=== PATIENT | male | born 1975 | race African-American/Black ===

== ENCOUNTER 2017-02-27 18:26 | Emergency (ER) | payer SELFPAY ==
[~2017-02-27] VITALS: Ht 180.3 cm; Wt 75.0 kg
[~2017-02-27 18:26] MED LIST: LORT7.5T3 PO; TRIA.1%T EX
[2017-02-27 18:27] VITALS: BP 138/83; PULSE 83; RESP 16; TEMP 99; O2SAT 99
[2017-02-27 19:47] LABS: AUTOMATED NEUTROPHIL # 4.5 TH/MM3 (1.8-7.7); BASOPHIL # 0.1 TH/MM3 (0-0.2); BASOPHIL % 0.7 % (0.0-2.0); EOSINOPHIL # 0.1 TH/MM3 (0-0.4); EOSINOPHIL % 1.3 % (0.0-4.0); HEMATOCRIT 45.6 % (39.0-51.0); HEMOGLOBIN 15.5 GM/DL (13.0-17.0); LYMPHOCYTE # 2.6 TH/MM3 (1.0-4.8); MEAN CELL VOLUME 96.1 FL (80.0-100.0); MEAN CORPUSCULAR HEMOGLOBIN 32.7 PG (27.0-34.0); MEAN CORPUSCULAR HGB CONC 34.1 % (32.0-36.0); MEAN PLATELET VOLUME 6.1 FL (7.0-11.0); MONOCYTE # 0.9 TH/MM3 (0-0.9); PLATELET COUNT 318 TH/MM3 (150-450); RED BLOOD COUNT 4.74 MIL/MM3 (4.50-5.90); RED CELL DISTRIBUTION WIDTH 14.5 % (11.6-17.2); WHITE BLOOD COUNT 8.3 TH/MM3 (4.0-11.0)
[2017-02-27 20:07] LABS: ALBUMIN 3.7 GM/DL (3.4-5.0); AST (GOT) 20 U/L (15-37); BICARBONATE 28.6 MEQ/L (21.0-32.0); BLOOD UREA NITROGEN 11 MG/DL (7-18); CALCIUM 9.7 MG/DL (8.5-10.1); CHLORIDE 102 MEQ/L (98-107); CREATININE 1.19 MG/DL (0.60-1.30); GLOMERULAR FILTRATION RATE 81 ML/MIN (>89); GLUCOSE,RANDOM 91 MG/DL (74-106); LIPASE 187 U/L (73-393); SODIUM (NA) 137 MEQ/L (136-145)
[2017-02-27 20:08] LABS: ALT (GPT) 18 U/L (12-78)
[2017-02-27 20:10] LABS: ALKALINE PHOSPHATASE 103 U/L (45-117); TOTAL BILIRUBIN ADULT 0.4 MG/DL (0.2-1.0); TOTAL PROTEIN 8.7 GM/DL (6.4-8.2)
[2017-02-27 20:23] LABS: BACTERIA, URINE RARE /hpf; BILIRUBIN, URINE NEG (NEG); BLOOD, URINE TRACE (NEG); GLUCOSE,URINE NEG (NEG); KETONE, URINE NEG (NEG); MUCUS URINE FEW /lpf (OCC); NITRITE,URINE NEG (NEG); PH, URINE 5.5 (5.0-8.5); SQUAMOUS EPITHELIAL CELL URINE 1 /hpf (0-5); URINE COLOR YELLOW (YELLW/STRAW); URINE LEUKOCYTE ESTERASE MOD (NEG)
[2017-02-27] MEDS ORDERED: SODIUM CHLORIDE 0.9% FLUSH 10 ML FLUSH IV FLUSH PRN (22:00)
[2017-02-27] MEDS ORDERED: AZITHROMYCIN PWD FOR SUSP 1 GM PACKET PO ONE (22:00)
[2017-02-27] MEDS ORDERED: cefTRIAXone 250 MG VIAL IM ONE (22:00)
[2017-02-27] MEDS ORDERED: LIDOCAINE HCL 1% 50 ML VIAL XX ONE (22:00)
--- NOTE | 2017-02-27 22:01 | PD ---
HPI Chief Complaint: Abdominal Pain Time Seen by Provider: 21:52 Travel History International Travel<30 days: No Contact w/Intl Traveler<30days: No Traveled to known affect area: No History of Present Illness HPI 41-year-old male here for evaluation of cough, lower abdominal pain, possible STD. Symptoms have been going on for about a week. Cough is productive of yellowish sputum. He states that when he coughs and when he has a bowel movement he experiences lower abdominal discomfort described as a charley horse. Denies trauma. No history of abdominal surgeries. No vomiting. No melena or hematochezia. No fevers or chills. PFSH Past Medical History Cancer: No Cardiovascular Problems: No Endocrine: No Genitourinary: No Immune Disorder: No Musculoskeletal: No Neurologic: No Psychiatric: No Reproductive: No Respiratory: No Sickle Cell Disease: No Social History Alcohol Use: Yes Tobacco Use: Yes Substance Use: Yes ([facility]) Allergies-Medications (Allergen,Severity, Reaction): Coded Allergies: No Known Allergies (Unverified Allergy, Unknown, 02/27/17) Reported Meds & Prescriptions Reported Meds & Active Scripts Active Review of Systems Except as stated in HPI: all other systems reviewed are Neg Physical Exam Narrative GENERAL: Well-developed, well-nourished, comfortable, no apparent distress. SKIN: Focused skin assessment warm/dry. No rash. HEAD: Atraumatic. Normocephalic. EYES: Pupils equal and round. No scleral icterus. No injection or drainage. ENT: Mucous membranes pink and moist. NECK: Trachea midline. No JVD. CARDIOVASCULAR: Regular rate and rhythm. RESPIRATORY: No accessory muscle use. Clear to auscultation. Breath sounds equal bilaterally. GASTROINTESTINAL: Abdomen soft, non-tender, nondistended. Normal bowel sounds. No hernias : Normal exam. No hernias. MUSCULOSKELETAL: No obvious deformities. No clubbing. No cyanosis. No edema. NEUROLOGICAL: Awake and alert. No obvious cranial nerve deficits. Motor grossly within normal limits. Normal speech. PSYCHIATRIC: Appropriate mood and affect; insight and judgment normal. Data Data Last Documented VS Vital Signs Date Time Temp Pulse Resp B/P (MAP) Pulse Ox O2 Delivery O2 Flow Rate FiO2 02/27/17 18:27 99.0 83 16 138/83 (101) 99 Room Air Orders Orders Complete Blood Count With Diff (02/27/17 18:38) Comprehensive Metabolic Panel (02/27/17 18:38) Urinalysis - C+S If Indicated (02/27/17 18:38) Gc And Chlamydia Pcr (02/27/17 18:38) Lipase (02/27/17 18:38) Urine Culture (02/27/17 19:25) Ct Abd/Pel W Iv Contrast(Rout) (02/27/17 21:54) Sodium Chloride 0.9% Flush (Ns Flush) (02/27/17 22:00) Influenzae A/B Antigen (02/27/17 21:54) Chest, Single Ap (02/27/17 ) Azithromycin Powd Pack (Zithromax Powd P (02/27/17 22:00) Ceftriaxone Inj (Rocephin Inj) (02/27/17 22:00) Lidocaine 1% Inj (50 Ml) (Xylocaine 1% I (02/27/17 22:00) Iohexol 350 Inj (Omnipaque 350 Inj) (02/27/17 22:44) Ketorolac Inj (Toradol Inj) (02/27/17 23:15) Labs Laboratory Tests Test 02/27/17 19:20 02/27/17 19:25 White Blood Count 8.3 TH/MM3 Red Blood Count 4.74 MIL/MM3 Hemoglobin 15.5 GM/DL Hematocrit 45.6 % Mean Corpuscular Volume 96.1 FL Mean Corpuscular Hemoglobin 32.7 PG Mean Corpuscular Hemoglobin Concent 34.1 % Red Cell Distribution Width 14.5 % Platelet Count 318 TH/MM3 Mean Platelet Volume 6.1 FL Neutrophils (%) (Auto) 55.0 % Lymphocytes (%) (Auto) 32.0 % Monocytes (%) (Auto) 11.0 % Eosinophils (%) (Auto) 1.3 % Basophils (%) (Auto) 0.7 % Neutrophils # (Auto) 4.5 TH/MM3 Lymphocytes # (Auto) 2.6 TH/MM3 Monocytes # (Auto) 0.9 TH/MM3 Eosinophils # (Auto) 0.1 TH/MM3 Basophils # (Auto) 0.1 TH/MM3 CBC Comment DIFF FINAL Differential Comment Blood Urea Nitrogen 11 MG/DL Creatinine 1.19 MG/DL Random Glucose 91 MG/DL Total Protein 8.7 GM/DL Albumin 3.7 GM/DL Calcium Level 9.7 MG/DL Alkaline Phosphatase 103 U/L Aspartate Amino Transf (AST/SGOT) 20 U/L Alanine Aminotransferase (ALT/SGPT) 18 U/L Total Bilirubin 0.4 MG/DL Sodium Level 137 MEQ/L Potassium Level 4.0 MEQ/L Chloride Level 102 MEQ/L Carbon Dioxide Level 28.6 MEQ/L Anion Gap 6 MEQ/L Estimat Glomerular Filtration Rate 81 ML/MIN Lipase 187 U/L Urine Color YELLOW Urine Turbidity CLEAR Urine pH 5.5 Urine Specific [place] 1.025 Urine Protein NEG mg/dL Urine Glucose (UA) NEG mg/dL Urine Ketones NEG mg/dL Urine Occult Blood TRACE Urine Nitrite NEG Urine Bilirubin NEG Urine Urobilinogen LESS THAN 2.0 MG/DL Urine Leukocyte Esterase MOD Urine RBC 2 /hpf Urine WBC 12 /hpf Urine Squamous Epithelial Cells 1 /hpf Urine Bacteria RARE /hpf Urine Mucus FEW /lpf Microscopic Urinalysis Comment CULTURE INDICATED Chlamydia trachomatis DNA (PCR) NOT DETECTED Neisseria gonorrhoeae DNA (PCR) NOT DETECTED MDM Medical Decision Making Medical Screen Exam Complete: Yes Emergency Medical Condition: Yes Differential Diagnosis Abdominal wall strain, colitis, diverticulitis, appendicitis, UTI, cystitis, urethritis Narrative Course Vital signs show heart rate 83, blood pressure 138/83, pulse ox 99% on room air , oral temp of 99F. CBC is essentially unremarkable. CMP is unremarkable. Lipase is 187. UA: Trace occult blood, moderate leukocyte esterase, 12 wbc's, rare bacteria, few mucus, culture indicated. Influenza is negative. CT abdomen pelvis: CONCLUSION: 1. No acute findings within the abdomen and pelvis. Multiple hepatic cysts. No obstruction, free fluid or free air. 2. Chronic sacroiliitis. 3. No evidence for appendicitis. Patient was made aware of all findings and provided a copy of his CT abdomen pelvis report. He is empirically treated for STDs with IM Rocephin and oral azithromycin. He is resting comfortably with no peritoneal signs on abdominal exam. He will also be started on doxycycline. He was advised follow-up with a primary care physician this week. He was informed on when to return to the emergency department. He verbalizes understanding and agreement with plan. Diagnosis Primary Impression: Abdominal pain Qualified Codes: R10.9 - Unspecified abdominal pain Additional Impressions: Urethritis Hepatic cyst Sacroiliitis Referrals: [facility] [address] 3 days Primary Care Physician 3 days Additional Instructions: Follow-up with a primary care physician this week. Return to the emergency department for worsening symptoms or any other concerns. Scripts Doxycycline Hyclate (Doxycycline Hyclate) 100 Mg Cap 100 MG PO BID for Infection for 7 Days, #14 CAP 0 Refills Prov: Walter Magana MD 02/27/17 Disposition: 01 DISCHARGE HOME Condition: Stable Walter Magana MD Feb 27, 2017 22:01
--- NOTE | 2017-02-27 22:22 | RADRPT ---
EXAM DATE/TIME: 02/27/2017 22:14 [facility] COMPARISON: No previous studies available for comparison. INDICATIONS : Cough. MEDICAL HISTORY : None. SURGICAL HISTORY : None. ENCOUNTER: Initial ACUITY: 1 week PAIN SCORE: 3/10 LOCATION: Bilateral chest FINDINGS: A single view of the chest demonstrates the lungs to be symmetrically aerated without evidence of mas s, infiltrate or effusion. The cardiomediastinal contours are unremarkable. Osseous structures are intact. CONCLUSION: No acute disease. Varun Perez MD on February 27, 2017 at 22:20 Board Certified Radiologist. This report was verified electronically.
[2017-02-27] MEDS ORDERED: IOHEXOL 350 MG/ML 10 ML VIAL (for RAD DIAG) IVCONTRAST ONE (22:44)
--- NOTE | 2017-02-27 23:01 | RADRPT ---
EXAM DATE/TIME: 02/27/2017 22:29 [facility] COMPARISON: No previous studies available for comparison. INDICATIONS : Patient complains of abdominal pain. IV CONTRAST: 86 cc Omnipaque 350 (iohexol) IV ORAL CONTRAST: No oral contrast ingested. RADIATION DOSE: 6.64 CTDIvol (mGy) MEDICAL HISTORY : None SURGICAL HISTORY : None. ENCOUNTER: Initial ACUITY: 1 day PAIN SCALE: 5/10 LOCATION: lower quadrant abdomen TECHNIQUE: Volumetric scanning of the abdomen and pelvis was performed. Using automated exposure control and ad justment of the mA and/or kV according to patient size, radiation dose was kept as low as reasonably achievable to obtain optimal diagnostic quality images. DICOM format image data is available electro nically for review and comparison. FINDINGS: Lung bases are clear. Multiple hepatic cysts measuring up to 4.8 cm anteriorly. Spleen, adrenals, kid neys and pancreas unremarkable. No bowel obstruction. No free air or free fluid. No adenopathy. Sclerotic changes on both sides the s acroiliac joints probably from chronic sacroiliitis. CONCLUSION: 1. No acute findings within the abdomen and pelvis. Multiple hepatic cysts. No obstruction, free flui d or free air. 2. Chronic sacroiliitis. 3. No evidence for appendicitis. Varun Perez MD on February 27, 2017 at 22:53 Board Certified Radiologist. This report was verified electronically.
[2017-02-27] MEDS ORDERED: KETOROLAC TROMETHAMINE 30 MG/ML (IVP) VIAL IV PUSH ONE (23:15)
[2017-02-27] MEDS ORDERED: DOXY100C PO (23:35)
== END 2017-02-27 23:40 | disposition home or self-care (01) ==
LOC: NEPD 18:26
DX: N34.2 Other urethritis (principal); K76.89 Other specified diseases of liver; M46.1 Sacroiliitis, not elsewhere classified; R05 Cough; F12.90 Cannabis use, unspecified, uncomplicated; Z72.0 Tobacco use
CPT/HCPCS: 71045; 74177; 80053; 81001; 83690; 85025; 87086; 87491; 87591; 87804; 96372; 96374; 99285; J0696; J1885; Q9967